=== PATIENT | male | born 1995 | race Caucasian/White ===

== ENCOUNTER 2024-05-07 03:24 | Emergency (ER) | payer SELFPAY ==
[~2024-05-07] VITALS: Ht 177.8 cm; Wt 79.4 kg
[2024-05-07 03:35] VITALS: BP 140/96; PULSE 125; RESP 15; TEMP 98.3; O2SAT 98; O2SAT 99
[2024-05-07] MEDS: LORazepam 1 MG TAB PO ONE (03:59)
[2024-05-07] MEDS: HYDROcodone/APAP 5/325 MG 1 TAB TAB PO ONE (04:00)
[2024-05-07] MEDS ORDERED: LORazepam 1 MG TAB PO ONE (04:40)
[2024-05-07] MEDS ORDERED: MIDAZOLAM 2 MG/2 ML VIAL IM ONE (04:45)
[2024-05-07] MEDS ORDERED: MIDAZOLAM 5 MG/5 ML VIAL ONE (04:47)
[2024-05-07] MEDS: MIDAZOLAM 5 MG/5 ML VIAL IM ONE (05:30)
[2024-05-07] MEDS: OLANZapine 10 MG VIAL IM ONE (05:35)
[2024-05-07] MEDS: LORazepam 2 MG/ML VIAL IM ONE (06:53)
[2024-05-07 07:15] VITALS: O2SAT 99
[2024-05-07 14:08] VITALS: BP 129/90; PULSE 141; RESP 25; TEMP 98.1; O2SAT 99
== END 2024-05-07 14:08 | disposition home or self-care (01) ==
LOC: MED 03:24
DX: S92.001A Unspecified fracture of right calcaneus, initial encounter for closed fracture (principal); S52.611A Displaced fracture of right ulna styloid process, initial encounter for closed fracture; S91.332A Puncture wound without foreign body, left foot, initial encounter; F14.129 Cocaine abuse with intoxication, unspecified; W14.XXXA Fall from tree, initial encounter; Y93.89 Activity, other specified; Y92.89 Other specified places as the place of occurrence of the external cause; Y99.8 Other external cause status
CPT/HCPCS: 29125; 70450; 72125; 73130; 73610; 90471; 90715; 93005; 96372; 99285; J2060; J2250; J3490; Q0092; 29515